=== PATIENT | female | born 1970 | race Caucasian/White ===

== ENCOUNTER 2016-06-27 04:46 | Emergency (ER) | payer BC ==
--- NOTE | 2016-06-27 05:05 | ED ---
Lower Extremity - HPI Summary HPI Summary: Patient felt sharp pain in the medial L knee when running on the treadmill. No allev factors, proximial or distal pain. - History of Current Complaint Chief Complaint: EDExtremityLower Stated Complaint: LEFT LEG PAIN Time Seen by Provider: 06/27/16 04:54 Hx Obtained From: Patient Hx Last Menstrual Period: hysterectomy Onset of Pain: Immediate Severity Initially: Mild Severity Currently: Mild - Allergies/Home Medications Allergies/Adverse Reactions: Allergies Allergy/AdvReac Type Severity Reaction Status Date / Time Fluoxetine [From Prozac] Allergy Intermediate Agitation Verified 06/27/16 05:02 Ondansetron [From Zofran] Allergy Intermediate Anxiety Verified 06/27/16 05:02 Sulfa Drugs Allergy Intermediate Nausea And Verified 06/27/16 05:02 Vomiting Alprazolam Allergy multiple Verified 06/27/16 05:02 side effects Gabapentin Allergy multiple Verified 06/27/16 05:02 side effects Topiramate [From Topamax] Allergy multiple Verified 06/27/16 05:02 side effects Tramadol Allergy rash and Verified 06/27/16 05:02 vomiting Valproic Acid [From Depakote] Allergy multiple Verified 06/27/16 05:02 side effects PMH/Surg Hx/FS Hx/Imm Hx Previously Healthy: Yes Endocrine/Hematology History: Denies: Hx Anticoagulant Therapy, Hx Diabetes, Hx Thyroid Disease Cardiovascular History: Denies: Hx Congestive Heart Failure, Hx Hypertension, Hx Pacemaker/ICD Respiratory History: Denies: Hx Asthma, Hx Chronic Obstructive Pulmonary Disease (COPD) History: Reports: Hx Renal Disease - KIDNEY FAILURE - 1997 - DUE TO STRESS, Other Problems/Disorders - acute kidney failure d/t stress in 2007 Sensory History: Reports: Hx Contacts or Glasses - wears glasses every day Denies: Hx Hearing Aid Opthamlomology History: Reports: Hx Contacts or Glasses - wears glasses every day Neurological History: Reports: Hx Migraine Denies: Hx Dementia, Hx Seizures Psychiatric History: Reports: Hx Depression Denies: Hx Panic Disorder, Hx Substance Abuse - Surgical History Surgery Procedure, Year, and Place: hysterectomy, 2 c-sections, leep. bladder sling 2010. LASIX - Immunization History Date of Tetanus Vaccine: Unknown Infectious Disease History: Denies: Hx Hepatitis, Hx Human Immunodeficiency Virus (HIV), Hx Shingles, Hx Tuberculosis - Family History Family History: FHx of blood clots - Aunt - Social History Alcohol Use: None Substance Use Type: Reports: None Smoking Status (MU): Never Smoked Tobacco Review of Systems Positive: Arthralgia All Other Systems Reviewed And Are Negative: Yes Physical Exam Triage Information Reviewed: Yes Vital Signs Reviewed: Yes Appearance: Positive: Well-Appearing, No Pain Distress, Well-Nourished Skin: Positive: Warm, Skin Color Reflects Adequate Perfusion, Dry Respiratory/Lung Sounds: Positive: Clear to Auscultation, Breath Sounds Present Cardiovascular: Positive: Normal, RRR, Pulses are Symmetrical in both Upper and Lower Extremities Musculoskeletal: Positive: Strength/ROM Intact, Pain @ - medial L knee. Valgus pain. NO anterior or posterior drawer. Neurological: Positive: Normal, Sensory/Motor Intact, Alert, Oriented to Person Place, Time, CN Intact II-III, Reflexes Intact, Abnormal Gait Lower Extremity Course/Dx - Diagnoses Differential Diagnosis/HQI/PQRI: Positive: Contusion, Fracture (Closed), Sprain , Strain, Other - Will eval for occult fx. Otherwise aleksandar wrap and crutches for comfort. Provider Diagnoses: Knee sprain Discharge - Discharge Plan Condition: Stable Disposition: HOME Patient Education Materials: Knee Sprain (ED) Referrals: Leelee Murrell MD [Primary Care Provider] - Additional Instructions: Patient needs to have light duty and limited walking due to left knee sprain. Needs to follow up with Primary Care Physician.
[2016-06-27 05:53] VITALS: BP 118/79
--- NOTE | 2016-06-27 09:32 | RAD ---
INDICATION: Medial left knee pain after running COMPARISON: None TECHNIQUE: 2 view radiograph of the left knee. FINDINGS: The visualized bones are well-corticated and properly aligned. The joint spaces are properly maintained. There is no radiographic evidence of joint effusion. There is no acute fracture, dislocation or other focal bony abnormality. IMPRESSION: Normal knee radiograph as described above. If the patient's symptoms persist, follow-up imaging is recommended.
== END 2016-06-27 05:52 | disposition home or self-care (01) ==
LOC: ED 04:46
DX: S83.92XA Sprain of unspecified site of left knee, initial encounter (principal); X58.XXXA Exposure to other specified factors, initial encounter; Y93.9 Activity, unspecified; Y92.9 Unspecified place or not applicable; Y99.9 Unspecified external cause status
CPT/HCPCS: 99282

== ENCOUNTER 2017-01-02 11:26 | Emergency (ER) | payer SELFPAY ==
[2017-01-02 11:48] VITALS: BP 111/71
--- NOTE | 2017-01-02 12:29 | RAD ---
HISTORY: Right ankle pain after injury, right foot pain after injury COMPARISONS: None VIEWS: 6, Frontal, lateral, and oblique views of the right foot and right ankle FINDINGS: BONE DENSITY: Normal. BONES: There is no displaced fracture. JOINTS: There is no arthropathy. ALIGNMENT: There is no dislocation. SOFT TISSUES: Unremarkable. OTHER FINDINGS: None. IMPRESSION: NO ACUTE OSSEOUS INJURY TO THE RIGHT FOOT OR RIGHT ANKLE. IF SYMPTOMS PERSIST, RECOMMEND REPEAT IMAGING.
--- NOTE | 2017-01-02 12:49 | UC ---
Lower Extremity/Ankle HPI - History of Current Complaint Chief Complaint: UCLowerExtremity Stated Complaint: ANKLE INJURY Time Seen by Provider: 01/02/17 12:30 Hx Obtained From: Patient Hx Last Menstrual Period: hysterectomy ?: No Onset/Duration: Sudden Onset - was pulling cart behind her today and she stopped but the cart kept rolling, trapped her foot and twisted it. Severity Initially: Moderate Severity Currently: Moderate Aggravating Factor(s): Standing, Ambulation Alleviating Factor(s): Rest, Elevation Able to Bear Weight: Yes - with pain Related History: Occupational Injury - Allergies/Home Medications Allergies/Adverse Reactions: Allergies Allergy/AdvReac Type Severity Reaction Status Date / Time Fluoxetine [From Prozac] Allergy Intermediate Agitation Verified 01/02/17 11:36 Ondansetron [From Zofran] Allergy Intermediate Anxiety Verified 01/02/17 11:36 Sulfa Drugs Allergy Intermediate Nausea And Verified 01/02/17 11:36 Vomiting Alprazolam Allergy multiple Verified 01/02/17 11:36 side effects Gabapentin Allergy multiple Verified 01/02/17 11:36 side effects Topiramate [From Topamax] Allergy multiple Verified 01/02/17 11:36 side effects Tramadol Allergy rash and Verified 01/02/17 11:36 vomiting Valproic Acid [From Depakote] Allergy multiple Verified 01/02/17 11:36 side effects Home Medications: Home Medications Albuterol HFA INHALER* [Ventolin HFA Inhaler*] 2 inhaler INH QID PRN 01/02/17 [ History Confirmed 01/02/17] PMH/Surg Hx/FS Hx/Imm Hx Previously Healthy: Yes Respiratory History: Asthma Neurological History: Migraine Other History Of: Negative For: Anticoagulant Therapy - Surgical History Surgical History: Yes Surgery Procedure, Year, and Place: hysterectomy, 2 c-sections, leep. bladder sling 2010. LASIX - Family History Known Family History: Positive: None Family History: FHx of blood clots - Aunt - Social History Occupation: Employed Full-time Lives: With Family Alcohol Use: None Substance Use Type: None Smoking Status (MU): Never Smoked Tobacco - Immunization History Most Recent Tetanus Shot: UNKNOWN Review of Systems Constitutional: Negative Respiratory: Negative Cardiovascular: Negative Musculoskeletal: Other: - Pain R lat ankle and foot Neurological: Negative Psychological: Negative All Other Systems Reviewed And Are Negative: Yes Physical Exam Triage Information Reviewed: Yes Appearance: Well-Appearing, No Pain Distress, Well-Nourished Vital Signs: Initial Vital Signs Temp 97.8 F 01/02/17 11:39 Pulse 66 01/02/17 11:39 Resp 16 01/02/17 11:39 BP 111/71 01/02/17 11:39 Pulse Ox 100 01/02/17 11:39 Vital Signs Reviewed: Yes Respiratory Exam: Normal Cardiovascular Exam: Normal Cardiovascular: Positive: Pulses Normal, Brisk Capillary Refill Musculoskeletal: Positive: Strength Intact, ROM Intact, Other: - ecchymosis R lat ankle. minor swelling Neurological Exam: Normal Psychological Exam: Normal Lower Extremity Course/Dx - Differential Dx/Diagnosis Differential Diagnosis/HQI/PQRI: Contusion, Fracture (Closed), Sprain, Strain Provider Diagnoses: contusion and strain R ankle/foot Discharge - Discharge Plan Condition: Stable Disposition: HOME Patient Education Materials: Contusion in Adults (ED), Ankle Strain (ED) Forms: *Work Release Referrals: Leelee Murrell MD [Primary Care Provider] - 3 Days (if not improving) Additional Instructions: ice and elevate right foot use aleksandar wrap for 3-5 days use over the counter ibuprofen as directed for pain
== END 2017-01-02 12:57 | disposition home or self-care (01) ==
LOC: UCEAST 11:26
DX: S90.01XA Contusion of right ankle, initial encounter (principal); S96.911A Strain of unspecified muscle and tendon at ankle and foot level, right foot, initial encounter; X50.0XXA Overexertion from strenuous movement or load, initial encounter; Y93.9 Activity, unspecified; Y99.9 Unspecified external cause status
CPT/HCPCS: 99212; G0463

== ENCOUNTER 2018-12-12 19:31 | Emergency (ER) | payer BC, OTHER ==
--- NOTE | 2018-12-12 19:34 | UC ---
Cardiac HPI - HPI Summary HPI Summary: 48 yo female presents with chest pain, SOB, dizziness, and nausea. She tells me that on 12/10 she was sitting at home watching a movie and began to her left sided chest pain and pressure that has persisted to now. Today she developed a episodes of SOB when lying flat and feels nauseous and dizzy. She took excedrin earlier today with no relief of her symptoms. She denies hx of cardiac dz. Denies fever, chills, recent illness, cough, vomiting, dysuria. She does have a fam hx of blood clots. - History of Current Complaint Stated Complaint: CHEST PAIN, SOB, NAUSEA Time Seen by Provider: 12/12/18 19:34 Hx Obtained From: Patient Hx Last Menstrual Period: hysterectomy Initial Severity: Moderate Current Severity: Moderate Pain Intensity: 5 - Allergy/Home Medications Allergies/Adverse Reactions: Allergies Allergy/AdvReac Type Severity Reaction Status Date / Time MS Fluoxetine [From Prozac] Allergy Intermediate Agitation Verified 01/02/17 11: 36 MS Ondansetron [From Zofran] Allergy Intermediate Anxiety Verified 01/02/17 11: 36 MS Sulfa Drugs [Sulfa Drugs] Allergy Intermediate Nausea And Verified 01/02/17 11:36 Vomiting alprazolam Allergy See Comment Verified 12/12/18 20:02 divalproex sodium Allergy See Comment Verified 12/12/18 20:02 [From Depakote] fluoxetine Allergy Agitation Verified 12/12/18 20:02 gabapentin Allergy See Comment Verified 12/12/18 20:02 MS Alprazolam [Alprazolam] Allergy multiple Verified 01/02/17 11:36 side effects MS Gabapentin [Gabapentin] Allergy multiple Verified 01/02/17 11:36 side effects MS Topiramate [From Topamax] Allergy multiple Verified 01/02/17 11:36 side effects MS Tramadol [Tramadol] Allergy rash and Verified 01/02/17 11:36 vomiting MS Valproic Acid Allergy multiple Verified 01/02/17 11:36 [From Depakote] side effects ondansetron Allergy Anxiety Verified 12/12/18 20:02 Sulfa (Sulfonamide Allergy Nausea And Verified 12/12/18 20:02 Antibiotics) Vomiting topiramate [From Topamax] Allergy See Comment Verified 12/12/18 20:02 tramadol Allergy See Comment Verified 12/12/18 20:02 Home Medications: Home Medications [id number] Es (Nf) [Excedrin Extra Strength 250-250-65 mg (NF)] 1 tab PO Q6H 12/12/18 [History Confirmed 12/12/18] Erenumab-Aooe [Aimovig Autoinjector] 70 mg SQ MONTHLY 12/12/18 [History Confirmed 12/12/18] PMH/Surg Hx/FS Hx/Imm Hx - Additional Past Medical History Additional PMH: Migraines Other History Of: Negative For: Anticoagulant Therapy - Surgical History Surgical History: Yes Surgery Procedure, Year, and Place: hysterectomy, 2 c-sections, leep. bladder sling 2010. LASIX - Family History Known Family History: Positive: None Family History: FHx of blood clots - Aunt - Social History Occupation: Employed Full-time Lives: With Family Alcohol Use: None Substance Use Type: None Smoking Status (MU): Never Smoked Tobacco - Immunization History Most Recent Tetanus Shot: UNKNOWN Review of Systems All Other Systems Reviewed And Are Negative: Yes Constitutional: Positive: Negative Skin: Positive: Negative Eyes: Positive: Negative ENT: Positive: Negative Respiratory: Positive: Shortness Of Breath Cardiovascular: Positive: Chest Pain Gastrointestinal: Positive: Nausea Genitourinary: Positive: Negative Motor: Positive: Negative Neurovascular: Positive: Negative Musculoskeletal: Positive: Negative Neurological: Positive: Negative Psychological: Positive: Negative Physical Exam - Summary Physical Exam Summary: GENERAL: NAD. WDWN. No pain distress. SKIN: No rashes, sores, lesions, or open wounds. NECK: Supple. Nontender. No lymphadenopathy. CHEST: CTAB. No r/r/w. No accessory muscle use. Breathing comfortably and in no distress. CV: RRR. Without m/r/g. Pulses intact. Cap refill <2seconds ABDOMEN: Soft. NTTP. No distention or guarding. No CVA tenderness. Bowel sounds present NEURO: Alert. PSYCH: Age appropriate behavior. Triage Information Reviewed: Yes Vital Signs: Vital Signs: Temp Pulse Resp BP Pulse Ox 97.9 F 75 18 125/82 100 12/12/18 19:46 12/12/18 19:46 12/12/18 19:46 12/12/18 19:46 12/12/18 19:46 Vital Signs Reviewed: Yes - Assessment/Plan Course Of Treatment: EKG: NSR 73bpm. No STEMI. Inverted T wave in III. Read by Dr. Hand. Discussed with pt that her symptoms are concerns of cardiac pathology or a PE - especially given her fam hx of blood clots. Advised to be seen in the ED for further eval. Pt was agreeable to this and agrees to ambulance transfer. In the clinic she was given 324mg ASA chew and left via EMS in stable condition. - Clinical Impression Provider Diagnosis: Chest pain Discharge - Sign-Out/Discharge Documenting (check all that apply): Patient Departure All imaging exams completed and their final reports reviewed: No Studies - Discharge Plan Condition: Stable Disposition: HOME-RECOMMEND TO ED Referrals: Leelee Murrell MD [Primary Care Provider] - - Billing Disposition and Condition Condition: STABLE Disposition: Home-Recommend to ED - Attestation Statements Provider Attestation: I was available for consult. This patient was seen by the JOSÉ LUIS. The patient was not presented to, seen by, or examined by me. -Demi
[2018-12-12 19:48] VITALS: BP 125/82
[2018-12-12] MEDS ORDERED: Aspirin TAB* 325 MG PO ONE (19:53)
[2018-12-12] MEDS ORDERED: Aspirin 81 mg CHEW TAB* 81 MG TAB.CHEW PO ONE (19:54)
== END 2018-12-12 20:10 | disposition home health service (06) ==
LOC: UCEAST 19:31
DX: R07.9 Chest pain, unspecified (principal); Z88.2 Allergy status to sulfonamides
CPT/HCPCS: 93005; 99213; A9270-GY; G0463

== ENCOUNTER 2018-12-12 20:33 | Emergency (ER) | payer BC ==
[2018-12-12] MEDS ORDERED: Morphine 4 MG/ML VIAL (1 ml) 4 MG/ML VIAL IV ONE (20:57)
[2018-12-12] MEDS ORDERED: Metoclopramide IV* 5 MG/ML 2 ML VIAL IV SLOW PU ONE (20:57)
[2018-12-12] MEDS ORDERED: Ketorolac INJ* 30 MG/ML 1 ML VIAL IV PUSH ONE (20:58)
--- NOTE | 2018-12-12 21:01 | ED ---
HPI Chest Pain - HPI Summary HPI Summary: This pt is a 48 Y/O F brought in by EMS to [facility] for Left anterior chest pain that has been present since 12/10/18. She rates the pain a 6/10 in severity and radiates to her back. She states that she became nauseas today and had a headache which prompted her to call EMS. The pain is aggravated with deep breaths and when she is laying down. She has no alleviating factors. She denies any vomiting, SOB, fevers, chills, and abdominal pain. She has a PMHx of migraines. 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 Negative: Shortness of Breath, Fever, Chills , Abdominal Pain, Vomiting - Allergy/Home Medications Allergies/Adverse Reactions: Allergies Allergy/AdvReac Type Severity Reaction Status Date / Time MS Fluoxetine [From Prozac] Allergy Intermediate Agitation Verified 01/02/17 11: 36 MS Ondansetron [From Zofran] Allergy Intermediate Anxiety Verified 01/02/17 11: 36 MS Sulfa Drugs [Sulfa Drugs] Allergy Intermediate Nausea And Verified 01/02/17 11:36 Vomiting alprazolam Allergy See Comment Verified 12/12/18 20:02 divalproex sodium Allergy See Comment Verified 12/12/18 20:02 [From Depakote] fluoxetine Allergy Agitation Verified 12/12/18 20:02 gabapentin Allergy See Comment Verified 12/12/18 20:02 MS Alprazolam [Alprazolam] Allergy multiple Verified 01/02/17 11:36 side effects MS Gabapentin [Gabapentin] Allergy multiple Verified 01/02/17 11:36 side effects MS Topiramate [From Topamax] Allergy multiple Verified 01/02/17 11:36 side effects MS Tramadol [Tramadol] Allergy rash and Verified 01/02/17 11:36 vomiting MS Valproic Acid Allergy multiple Verified 01/02/17 11:36 [From Depakote] side effects ondansetron Allergy Anxiety Verified 12/12/18 20:02 Sulfa (Sulfonamide Allergy Nausea And Verified 12/12/18 20:02 Antibiotics) Vomiting topiramate [From Topamax] Allergy See Comment Verified 12/12/18 20:02 tramadol Allergy See Comment Verified 12/12/18 20:02 Home Medications: Home Medications SUMAtriptan TAB* [Imitrex TAB*] 50 mg PO BID 12/12/18 [History Confirmed ] PMH/Surg Hx/FS Hx/Imm Hx Previously Healthy: No Endocrine/Hematology History: Denies: Hx Anticoagulant Therapy, Hx Diabetes, Hx Thyroid Disease Cardiovascular History: Denies: Hx Congestive Heart Failure, Hx Hypertension, Hx Pacemaker/ICD Respiratory History: Denies: Hx Asthma, Hx Chronic Obstructive Pulmonary Disease (COPD) GI History: Denies: Hx Ulcer History: Reports: Hx Renal Disease - KIDNEY FAILURE - 1997 - DUE TO STRESS, Other Problems/Disorders - acute kidney failure d/t stress in 2007 Sensory History: Reports: Hx Contacts or Glasses - wears glasses every day Denies: Hx Hearing Aid Opthamlomology History: Reports: Hx Contacts or Glasses - wears glasses every day Neurological History: Reports: Hx Migraine Denies: Hx Dementia, Hx Seizures Psychiatric History: Reports: Hx Depression Denies: Hx Panic Disorder, Hx Substance Abuse - Surgical History Surgery Procedure, Year, and Place: hysterectomy, 2 c-sections, leep. bladder sling 2010. LASIX - Immunization History Date of Tetanus Vaccine: Unknown Immunizations Up to Date: Yes Infectious Disease History: No Infectious Disease History: Reports: Traveled Outside the [place] in Last 30 Days Denies: Hx Clostridium Difficile, Hx Hepatitis, Hx Human Immunodeficiency Virus (HIV), Hx of Known/Suspected MRSA, Hx Shingles, Hx Tuberculosis, Hx Known/ Suspected VRE, Hx Known/Suspected VRSA, History Other Infectious Disease - Family History Known Family History: Positive: None Family History: FHx of blood clots - Aunt - Social History Alcohol Use: None Substance Use Type: Reports: None Smoking Status (MU): Never Smoked Tobacco Review of Systems Negative: Fever, Chills Positive: Chest Pain - left anterior Negative: Shortness Of Breath, Cough Positive: Nausea. Negative: Abdominal Pain, Vomiting Positive: Headache All Other Systems Reviewed And Are Negative: Yes Physical Exam - Summary Physical Exam Summary: VITAL SIGNS: Reviewed. GENERAL: Patient is a well-developed and nourished female who is lying comfortable in the stretcher. Patient is not in any acute respiratory distress. HEAD AND FACE: No signs of trauma. No ecchymosis, hematomas or skull depressions. No sinus tenderness. EYES: PERRLA, EOMI x 2, No injected conjunctiva, no nystagmus. EARS: Hearing grossly intact. Ear canals and tympanic membranes are within normal limits. MOUTH: Oropharynx within normal limits. NECK: Supple, trachea is midline, no adenopathy, no JVD, no carotid bruit, no c- spine tenderness, neck with full ROM CHEST: Symmetric, no tenderness at palpation LUNGS: Clear to auscultation bilaterally. No wheezing or crackles. CVS: Regular rate and rhythm, S1 and S2 present, no murmurs or gallops appreciated. ABDOMEN: Soft, non-tender. No signs of distention. No rebound no guarding, and no masses palpated. Bowel sounds are normal. EXTREMITIES: FROM in all major joints, no edema, no cyanosis or clubbing. NEURO: Alert and oriented x 3. No acute neurological deficits. Speech is normal and follows commands. SKIN: Dry and warm Triage Information Reviewed: Yes Vital Signs On Initial Exam: Initial Vitals Temp Pulse Resp BP Pulse Ox 97.1 F 75 18 128/82 100 12/12/18 20:33 12/12/18 20:33 12/12/18 20:33 12/12/18 20:33 12/12/18 20:33 Vital Signs Reviewed: Yes Diagnostics - Vital Signs Vital Signs Temp Pulse Resp BP Pulse Ox 12/12/18 20:56 17 12/12/18 20:47 70 100 12/12/18 20:45 70 128/82 100 12/12/18 20:33 97.1 F 75 18 128/82 100 - Laboratory Result Diagrams: 12/12/18 21:05 12/12/18 21:05 Lab Statement: Any lab studies that have been ordered have been reviewed, and results considered in the medical decision making process. - Radiology CXR Radiology Interpretation Completed By: ED Physician Summary of Radiographic Findings: No acute process. Pending offical review. - CT Chest/Thorax CTA CT Interpretation Completed By: Radiologist Summary of CT Findings: 1. No acute findings. No pulmonary embolus. 2. Tiny left pleural effusion. 3. Left renal cyst, partially visualized. ED Physician has reviewed this report. - EKG 2034 Cardiac Rate: NL - 70 BPM EKG Rhythm: Sinus Rhythm ST Segment: Normal Ectopy: None Summary of EKG Findings: Sinus rhythm with a rate of 70 BPM and Normal axis. Normal interval. No ischemic changes. Interpreted [place] Dr. [place] 203912/12/18. Chest Pain Course/Dx - Course Course Of Treatment: This pt is a 48 Y/O F brought in by EMS to [facility] for Left anterior chest pain that has been present since 12/10/18. She rates the pain a 6/ 10 in severity and radiates to her back. She states that she became nauseas today and had a headache which prompted her to call EMS. Her PE has no abnormal findings. Her EKG shows that she has a Sinus rhythm with a rate of 70 BPM and Normal axis. Normal interval. No ischemic changes. Her lab values have abnormalities in a positive D-Dimer, but her CXR shows no acute processes. Het Chest/Thorax CTA shows the followin. No acute findings. No pulmonary embolus. 2. Tiny left pleural effusion. 3. Left renal cyst, partially visualized. The pt will be discharged home with a Dx of atypical chest pain and instructed to follow up with senior game designer Dr. Granger in the morning to schedule a stress test. - Diagnoses Provider Diagnoses: Atypical chest pain Discharge - Sign-Out/Discharge Documenting (check all that apply): Patient Departure - discharge Patient Received Moderate/Deep Sedation with Procedure: No - Discharge Plan Condition: Stable Disposition: HOME Patient Education Materials: Chest Pain (ED) Referrals: Leelee Murrell MD [Primary Care Provider] - 2 Days Gee Granger MD [Medical Doctor] - As Soon As Possible Additional Instructions: Please follow up with dr. Granger, cardiology, [facility] to schedule a stress test. Also follow up with your primary care provider and return to the emergency department for any new or worsening symptoms. - Attestation Statements Document Initiated by Scribe: Yes Documenting Scribe: Enrique Funez Provider For Whom Scribe is Documenting (Include Credential): Jez Oliveros MD Scribe Attestation: I, Enrique Funez, scribed for Jez Oliveros MD on 12/13/18 at 0151. Status of Scribe Document: Ready
[2018-12-12 21:20] LABS: ABS Basophils 0.1 10^3/ul (0-0.2); ABS Eosinophils 0.3 10^3/ul (0-0.6); ABS Lymphocytes 1.5 10^3/ul (1.0-4.8); ABS Monocytes 0.5 10^3/ul (0-0.8); ABS Neutrophils 5.6 10^3/ul (1.5-7.7); Eosinophil % 3.8 %; Hematocrit 39 % (35-47); Hemoglobin 13.5 g/dL (12.0-16.0); Lymphocyte % 18.9 %; Mean Corpuscular HGB Conc 35 g/dL (31-36); Mean Corpuscular Hemoglobin 31 pg (27-31); Mean Corpuscular Volume 89 fL (80-97); Mean Platelet Volume 8.5 fL (7.4-10.4); Platelet Count 196 10^3/uL (150-450); Red Blood Count 4.38 10^6 /uL (3.70-4.87); Red Cell Distribution Width 13 % (10-15)
[2018-12-12 21:25] LABS: Activated Partial Thrombo Time 33.9 seconds (26.0-38.0); INR 0.97 (0.82-1.09)
[2018-12-12 21:35] LABS: Albumin 4.1 g/dL (3.2-5.2); Albumin/Globulin Ratio 1.5 (1-3); BUN/Creatinine Ratio 16.9 (8-20); Calcium 9.3 mg/dL (8.6-10.3); EGFR African American 130.5 (>60); EGFR Non-African American 107.9 (>60); Globulin 2.8 g/dL (2-4); Potassium 3.5 mmol/L (3.5-5.0); Total Bilirubin 0.4 mg/dL (0.2-1.0); Total Protein 6.9 g/dL (6.4-8.9)
[2018-12-12] MEDS ORDERED: Iohexol 350* (CONTRAST) 500 ML MDV IV ONE (23:44)
[2018-12-13 01:47] VITALS: BP 96/69
== END 2018-12-13 02:15 | disposition home or self-care (01) ==
LOC: ED 20:33
DX: R07.89 Other chest pain (principal); Z88.1 Allergy status to other antibiotic agents; Z88.5 Allergy status to narcotic agent; Z88.2 Allergy status to sulfonamides; Z88.8 Allergy status to other drugs, medicaments and biological substances; J90 Pleural effusion, not elsewhere classified
CPT/HCPCS: 36415; 71045; 71275; 80053; 82550; 83735; 84484; 85025; 85379; 85610; 85730; 93005; 96374; 96375; 99284; J1885; J2270; J2765; Q9967